=== PATIENT | male | born 1980 | race Caucasian/White ===

== ENCOUNTER 2018-05-08 17:27 | Emergency (ER) | payer OTHER ==
[2018-05-08 17:35] VITALS: BP 126/76; PULSE 78; RESP 18; TEMP 98.1
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
== END 2018-05-08 18:21 | disposition home or self-care (01) ==
LOC: EC 17:27
DX: S01.21XA Laceration without foreign body of nose, initial encounter (principal); Y09 Assault by unspecified means; Y99.0 Civilian activity done for income or pay
CPT/HCPCS: 99283